=== PATIENT | male | born 1985 | race African-American/Black ===

== ENCOUNTER 2016-08-15 00:13 | Emergency (ER) | payer SELFPAY ==
[~2016-08-15] VITALS: Ht 175.3 cm; Wt 71.3 kg
[~2016-08-15 00:13] MED LIST: BACTRIM,SEPT1 TABLET PO; BENTYL20 MG PO; FLEXERIL10 MG PO; HYDROCODON-ACE1 EAC7 PO; IMODIUM MS REL1 EACH PO; KEFLEX500 MG PO; LODINE200 MG PO; MOTRIN800 MG PO; NAPROSYN500 MG PO; NAPROXEN500 MG PO; NO HOME MED; NORCO 5/3251 TABLET PO; PERCOCET 5/31 TABLET PO; PREDNISONE20 MG PO; ULTRAM50 MG PO; VALIUM2 MG PO; ZOFRAN4 MG PO
[2016-08-15] MEDS ORDERED: PERMETHRIN118 ML TP (01:11)
[2016-08-15 01:25] VITALS: BP 146/97
== END 2016-08-15 01:35 | disposition home or self-care (01) ==
LOC: EXP 00:13 → EME 00:13 → EXP 01:35
DX: B85.3 Phthiriasis (principal); R31.9 Hematuria, unspecified; F17.200 Nicotine dependence, unspecified, uncomplicated
CPT/HCPCS: 99281; 99283

== ENCOUNTER 2016-09-04 22:14 | Emergency (ER) | payer SELFPAY ==
[~2016-09-04] VITALS: Ht 175.3 cm; Wt 72.7 kg
[~2016-09-04 22:14] MED LIST changes: +PERMETHRIN118 ML TP
[2016-09-04 22:49] LABS: HEMATOCRIT 41.5 % (38.0-50.0); MCH 29.7 PG (29.0-34.0); MCHC 33.3 G/DL (30.0-36.0); MCV 89.4 FL (86-99); PLATELET COUNT 206 K/uL (156-360); RBC DIS.WIDTH-CV 12.8 % (11.8-14.6); RBC DIS.WIDTH-SD 42.2 % (39-53); RED BLOOD COUNT 4.64 M/uL (4.00-5.50); WHITE BLOOD COUNT 6.3 K/uL (4.1-10.2)
[2016-09-04 23:00] LABS: CHLORIDE 107 mEq/L (99-109); POTASSIUM 3.5 mEq/L (3.7-5.4); SODIUM 139 mEq/L (136-147)
[2016-09-04 23:01] LABS: GLUCOSE 102 mg/dL (70-99)
[2016-09-04 23:03] LABS: ANION GAP 11 MEQ/L (2-14)
[2016-09-04 23:05] LABS: GFR ESTIMATE (CALCULATED) > 59 mL/min/; SERUM ETHYL ALCOHOL < 10 mg/dL
[2016-09-04 23:07] LABS: UREA NITROGEN (BUN) 13 mg/dL (9-23)
[2016-09-04 23:08] LABS: SALICYLATE < 5.0 MG/DL (15-30)
[2016-09-04 23:25] VITALS: BP 118/73
== END 2016-09-04 23:29 | disposition home or self-care (01) ==
LOC: EME → EDBD 22:14 → EME 22:14
PROVIDERS: Emergency Medicine
DX: T50.901A Poisoning by unspecified drugs, medicaments and biological substances, accidental (unintentional), initial encounter (principal); F17.200 Nicotine dependence, unspecified, uncomplicated
CPT/HCPCS: 80048; 81003; 85027; 99281; 99285; G0480